=== PATIENT | female | born 2000 | race American Indian/Alaskan Native ===

== ENCOUNTER 2022-03-02 06:11 | Emergency (ER) | payer OTHER ==
[2022-03-02] MEDS ORDERED: MORPHINE 4 MG/1 ML INJ IV ONE (07:20)
[2022-03-02] MEDS ORDERED: FAMOTIDINE 20 MG/2 ML INJ IV ONE (07:20)
[2022-03-02] MEDS ORDERED: SODIUM CHLORIDE 0.9% 1000 ML 1,000 ML IV ONE ×2 (07:20→11:00)
[2022-03-02] MEDS ORDERED: ONDANSETRON 4 MG/2 ML INJ IV ONE (07:20)
[2022-03-02 07:32] LABS: Alanine Aminotransferase 25 units/L (7-56); Albumin 4.5 g/dL (3.9-5); Blood Urea Nitrogen 9 mg/dL (7-17); Calcium 9.4 mg/dL (8.4-10.2); Hemolysis Index 1
[2022-03-02 07:33] LABS: Basophils % (Auto) 0.5 % (0.0-1.8); Eosinophils # (Auto) 0.2 K/mm3 (0.0-0.4); Eosinophils % (Auto) 3.2 % (0.0-4.3); Hemoglobin 11.4 gm/dl (10.1-14.3); Lymphocytes # (Auto) 2.7 K/mm3 (1.2-5.4); Lymphocytes % (Auto) 43.3 % (13.4-35.0); Mean Corpuscular HGB Conc 34 % (30-34); Mean Corpuscular Volume 84 fl (79-97); Monocytes # (Auto) 0.4 K/mm3 (0.0-0.8); Monocytes % (Auto) 6.6 % (0.0-7.3); Platelet Count 348 K/mm3 (140-440); Red Blood Count 4.06 M/mm3 (3.65-5.03); Red Cell Distribution Width 14.6 % (13.2-15.2)
[2022-03-02 07:34] LABS: BUN/Creatinine Ratio 18
[2022-03-02 08:10] LABS: Mucus,Urine FEW /HPF; WBC,Urine < 1.0 /HPF (0.0-6.0)
[2022-03-02 08:14] LABS: Color,Urine Yellow (Yellow)
--- NOTE | 2022-03-02 09:25 | Emergency Department Report ---
ED Abdominal Pain HPI - General Chief Complaint: Abdominal Pain Stated Complaint: ABD PAIN Time Seen by Provider: 03/02/22 07:11 Source: patient, EMS Mode of arrival: Stretcher Limitations: No Limitations - History of Present Illness Initial Comments: This is a 22-year-old female nontoxic, well nourished in appearance, no acute signs of distress presents to the ED with c/o of nausea and vomiting and abdominal pain several days. Patient describes vomiting as food content and yellow gastric acid. Patient describes abdominal pain as cramping and aching with level of 8/10 upper abdomen area. Patient denies chest pain, short of breath, fever, hemoptysis, blood in stool, chills, headache, stiff neck, numbness or tingling. Patient denies any diarrhea or constipation. Denies any blood in stool. Patient denies any recent travels. Patient denies any allergies. Patient did has history of gallstones and was instructed that she needs to have surgery but did not due to recent . MD Complaint: abdominal pain -: days(s) Location: LUQ, RUQ Radiation: none Migration to: no migration Severity: mild Severity scale (0 -10): 8 Quality: aching Consistency: constant Improves With: nothing Worsens With: nothing Associated Symptoms: nausea, vomiting. denies: diarrhea, fever, chills, constipation, dysuria, hematemesis, hematochezia, melena, hematuria, anorexia, syncope - Related Data Previous Rx's Medication Instructions Recorded Last Taken Type Acetaminophen/Codeine [Tylenol 1 tab PO Q6H PRN #12 tab 03/02/22 Unknown Rx /Codeine # 3 tab] Ciprofloxacin HCl 500 mg PO Q12H #14 tab 03/02/22 Unknown Rx Ondansetron [Zofran Odt] 4 mg PO Q8HR PRN #12 tab.rapdis 03/02/22 Unknown Rx Allergies Allergy/AdvReac Type Severity Reaction Status Date / Time No Known Allergies Allergy Unverified 03/02/22 06:31 ED Review of Systems ROS: Stated complaint: ABD PAIN Other details as noted in HPI Comment: All other systems reviewed and negative Constitutional: denies: chills, fever Eyes: denies: eye pain, eye discharge, vision change ENT: denies: ear pain, throat pain Respiratory: denies: cough, shortness of breath, wheezing Cardiovascular: denies: chest pain, palpitations Endocrine: no symptoms reported Gastrointestinal: abdominal pain, nausea, vomiting. denies: diarrhea, constipation, hematemesis, melena, hematochezia Genitourinary: denies: urgency, dysuria, discharge Musculoskeletal: denies: back pain, joint swelling, arthralgia Skin: denies: rash, lesions Neurological: denies: headache, weakness, paresthesias Psychiatric: denies: anxiety, depression Hematological/Lymphatic: denies: easy bleeding, easy bruising ED Past Medical Hx - Past Medical History Previous Medical History?: Yes Additional medical history: Gallstones - Surgical History Past Surgical History?: No - Social History Smoking Status: Never Smoker Substance Use Type: None - Medications Home Medications: Home Medications Medication Instructions Recorded Confirmed Last Taken Type Acetaminophen/Codeine [Tylenol 1 tab PO Q6H PRN #12 tab 03/02/22 Unknown Rx /Codeine # 3 tab] Ciprofloxacin HCl 500 mg PO Q12H #14 tab 03/02/22 Unknown Rx Ondansetron [Zofran Odt] 4 mg PO Q8HR PRN #12 tab.rapdis 03/02/22 Unknown Rx ED Physical Exam - General Limitations: No Limitations General appearance: alert, in no apparent distress - Head Head exam: Present: atraumatic, normocephalic - Eye Eye exam: Present: normal appearance - Neck Neck exam: Present: normal inspection, full ROM. Absent: lymphadenopathy - Respiratory Respiratory exam: Absent: respiratory distress - Cardiovascular Cardiovascular Exam: Present: regular rate - GI/Abdominal GI/Abdominal exam: Present: soft, tenderness (upper abdomen area bilateral), normal bowel sounds. Absent: distended, guarding, rebound, rigid, diminished bowel sounds - Extremities Exam Extremities exam: Present: full ROM - Back Exam Back exam: Present: normal inspection, full ROM. Absent: tenderness, CVA tenderness (R), CVA tenderness (L), muscle spasm, paraspinal tenderness, vertebral tenderness, rash noted - Neurological Exam Neurological exam: Present: alert, oriented X3, normal gait - Psychiatric Psychiatric exam: Present: normal affect, normal mood - Skin Skin exam: Present: warm, dry, intact, normal color. Absent: rash ED Course Vital Signs 03/02/22 03/02/22 03/02/22 06:25 11:08 11:18 Temperature 98.1 F 98.5 F Pulse Rate 93 H 82 Respiratory 14 18 Rate Blood Pressure 130/80 Blood Pressure 104/58 [Left] O2 Sat by Pulse 100 Oximetry - Reevaluation(s) Reevaluation #1: 03/02/22 09:25 Patient is speaking in full sentences with no signs of distress noted. ED Medical Decision Making - Lab Data Result diagrams: 03/02/22 06:46 03/02/22 06:46 Lab Results 03/02/22 03/02/22 03/02/22 Range/Units 06:43 06:46 06:46 WBC 6.3 (4.5-11.0) K/mm3 RBC 4.06 (3.65-5.03) M/mm3 Hgb 11.4 (10.1-14.3) gm/dl Hct 34.0 (30.3-42.9) % MCV 84 (79-97) fl MCH 28 (28-32) pg MCHC 34 (30-34) % RDW 14.6 (13.2-15.2) % Plt Count 348 (140-440) K/mm3 Lymph % (Auto) 43.3 H (13.4-35.0) % Gaston % (Auto) 6.6 (0.0-7.3) % Eos % (Auto) 3.2 (0.0-4.3) % Baso % (Auto) 0.5 (0.0-1.8) % Lymph # (Auto) 2.7 (1.2-5.4) K/mm3 Gaston # (Auto) 0.4 (0.0-0.8) K/mm3 Eos # (Auto) 0.2 (0.0-0.4) K/mm3 Baso # (Auto) 0.0 (0.0-0.1) K/mm3 Seg Neutrophils % 46.4 (40.0-70.0) % Seg Neutrophils # 2.9 (1.8-7.7) K/mm3 Sodium 139 (137-145) mmol/L Potassium 4.2 (3.6-5.0) mmol/L Chloride 103.0 (98-107) mmol/L Carbon Dioxide 25 (22-30) mmol/L Anion Gap 15 mmol/L BUN 9 (7-17) mg/dL Creatinine 0.5 L (0.6-1.2) mg/dL Estimated GFR > 60 ml/min BUN/Creatinine Ratio 18 % Glucose 106 H (65-100) mg/dL Calcium 9.4 (8.4-10.2) mg/dL Total Bilirubin < 0.20 (0.1-1.2) mg/dL AST 15 (5-40) units/L ALT 25 (7-56) units/L Alkaline Phosphatase 109 (35-129) units/L Total Protein 7.7 (6.3-8.2) g/dL Albumin 4.5 (3.9-5) g/dL Albumin/Globulin Ratio 1.4 % Lipase 34 (13-60) units/L HCG, Qual (Negative) Urine Color Yellow (Yellow) Urine Turbidity Clear (Clear) Specific Colony (Man) 1.030 (1.003-1.030) Ur Protein (Man) Negative (Negative) mg/dL Ur Ketones (Man) Negative (Negative) Ur Nitrite (Man) Negative (Negative) Ur Reducing Substances Not Reportable Urine Bilirubin (Man) Negative (Negative) Urine Ictotest Not Reportable Leukocyte Esterase (Man) Negative (Negative) Urine WBC (Auto) < 1.0 (0.0-6.0) /HPF Urine RBC (Auto) 2.0 (0.0-6.0) /HPF U Epithel Cells (Auto) 1.0 (0-13.0) /HPF Urine RBC (Manual) 1+ (Negative) Urine Mucus Few /HPF 03/02/22 Range/Units 06:46 WBC (4.5-11.0) K/mm3 RBC (3.65-5.03) M/mm3 Hgb (10.1-14.3) gm/dl Hct (30.3-42.9) % MCV (79-97) fl MCH (28-32) pg MCHC (30-34) % RDW (13.2-15.2) % Plt Count (140-440) K/mm3 Lymph % (Auto) (13.4-35.0) % Gaston % (Auto) (0.0-7.3) % Eos % (Auto) (0.0-4.3) % Baso % (Auto) (0.0-1.8) % Lymph # (Auto) (1.2-5.4) K/mm3 Gaston # (Auto) (0.0-0.8) K/mm3 Eos # (Auto) (0.0-0.4) K/mm3 Baso # (Auto) (0.0-0.1) K/mm3 Seg Neutrophils % (40.0-70.0) % Seg Neutrophils # (1.8-7.7) K/mm3 Sodium (137-145) mmol/L Potassium (3.6-5.0) mmol/L Chloride (98-107) mmol/L Carbon Dioxide (22-30) mmol/L Anion Gap mmol/L BUN (7-17) mg/dL Creatinine (0.6-1.2) mg/dL Estimated GFR ml/min BUN/Creatinine Ratio % Glucose (65-100) mg/dL Calcium (8.4-10.2) mg/dL Total Bilirubin (0.1-1.2) mg/dL AST (5-40) units/L ALT (7-56) units/L Alkaline Phosphatase (35-129) units/L Total Protein (6.3-8.2) g/dL Albumin (3.9-5) g/dL Albumin/Globulin Ratio % Lipase (13-60) units/L HCG, Qual Negative (Negative) Urine Color (Yellow) Urine Turbidity (Clear) Specific Colony (Man) (1.003-1.030) Ur Protein (Man) (Negative) mg/dL Ur Ketones (Man) (Negative) Ur Nitrite (Man) (Negative) Ur Reducing Substances Urine Bilirubin (Man) (Negative) Urine Ictotest Leukocyte Esterase (Man) (Negative) Urine WBC (Auto) (0.0-6.0) /HPF Urine RBC (Auto) (0.0-6.0) /HPF U Epithel Cells (Auto) (0-13.0) /HPF Urine RBC (Manual) (Negative) Urine Mucus /HPF - Radiology Data [facility] [address] [place] [address] Ultrasound Report Signed Patient: DUNCAN VILLAREAL MR#: [id number] : 2000 Acct:[id number] Age/Sex: 22 / F ADM Date: 03/02/22 Loc: ED Attending Dr: Ordering Physician: TANIA URBINA NP Date of Service: 03/02/22 Procedure(s): US abdomen limited Accession Number(s): [id number] cc: TANIA URBINA NP ULTRASOUND ABDOMEN, LIMITED INDICATION / CLINICAL INFORMATION: RUQ pain w/ abnormal CT of gallbladder. COMPARISON: None available. FINDINGS: PANCREAS: Visualized portion shows no significant abnormality. LIVER: Mildly enlarged 17.7 cm. Normal hepatopedal blood flow in the main portal vein. GALLBLADDER: Multiple shadowing gallstones are appreciated. The gallbladder wall is at the upper limits of normal measuring 3.8 mm. No definitive pericholecystic fluid. Sonographic Tai's sign is not documented. BILE DUCTS: No significant abnormality. Common bile duct measures 2.7 mm. FREE FLUID: None. ADDITIONAL FINDINGS: None. IMPRESSION: 1. Findings equivocal for early cholecystitis as there are stones and borderline wall thickening but no pericholecystic fluid. Please note no sonographic Tai sign was performed. Consider short interval follow-up based on clinical course. Signer Name: Pinky Lara MD Signed: 03/02/2022 12:57 PM Workstation Name: [email or web address] Transcribed By: RV Dictated By: PINKY LARA MD Electronically Authenticated By: PINKY LARA MD Signed Date/Time: 03/02/22 1257 DD/ 1252 TD/TT: [facility] [address] [place] [address] Cat Scan Report Signed Patient: DUNCAN VILLAREAL MR#: [id number] : 2000 Acct:[id number] Age/Sex: 22 / F ADM Date: 03/02/22 Loc: ED Attending Dr: Ordering Physician: TANIA URBINA NP Date of Service: 03/02/22 Procedure(s): CT abdomen pelvis w con Accession Number(s): [id number] cc: TANIA URBINA NP CT ABDOMEN AND PELVIS WITH CONTRAST INDICATION / CLINICAL INFORMATION: abd pain with n/v OMNIPAQUE 350 100ML preg test neg. TECHNIQUE: Axial CT images were obtained through the abdomen and pelvis after [address] scans at this location are performed using CT dose reduction for ALARA by means of automated exposure control. COMPARISON: None available. FINDINGS: LOWER CHEST: No significant abnormality. LIVER: No significant abnormality. GALLBLADDER: Multiple gallstones. Questionable wall thickening. BILE DUCTS: No significant abnormality. PANCREAS: No significant abnormality. SPLEEN: No significant abnormality. ADRENALS: No significant abnormality. RIGHT KIDNEY / URETER: No significant abnormality. LEFT KIDNEY / URETER: No significant abnormality. STOMACH / SMALL BOWEL: No significant abnormality. COLON: No significant abnormality. APPENDIX: No significant abnormality. PERITONEUM: Trace, low dense, likely physiologic. No free air. No fluid collection. LYMPH NODES: No significant adenopathy. AORTA / ARTERIES: No significant abnormality. IVC / VEINS: No significant abnormality. URINARY BLADDER: No significant abnormality. REPRODUCTIVE ORGANS: Uterus heterogeneity/hypervascularity with parametrial vascular congestion. Bilateral ovarian cysts, largest on the right measuring 2.4 cm, likely physiologic. ADDITIONAL FINDINGS: None. SKELETAL SYSTEM: No significant abnormality. IMPRESSION: 1. Gallstones with suggestion of early gallbladder wall thickening which may indicate early cholecystitis. Correlate biochemically/clinically and recommend ultrasound to better characterize. 2. Premature vascular congestion presumably related the patient's menstrual cycle; correlate clinically. Uterine heterogeneity may indicate a component of fibroids. Routine pelvic sonographic follow-up is suggested. Signer Name: Vandana Hartman MD Signed: 03/02/2022 11:17 AM Workstation Name: [id number] Transcribed By: WP Dictated By: Chad HARTMAN Electronically Authenticated By: Chad HARTMAN Signed Date/Time: 03/02/221116 DD/ 12 TD/TT: - Medical Decision Making 22 old female that presents with cholecystitis and gallstones. Patient stable and was examined by me. Labs obtained. UA obtained. CT of abdomen and ultrasound of abdomen obtained and dictated by the radiologist. Patient is notified of the report with no questions noted by the patient. Vital signs are stable prior to discharge. Patient received medical treatment in the ED which patient stated symptoms has resovled and subsided. Was instructed note to operate any machinery due to possible drowsiness and stated someone will drive the patient home. A by mouth challenge has been obtained and patient tolerated well with no nausea vomiting. Patient was also instructed to Follow-up with a primary care and general surgeon doctor in 3-5 days or if symptoms worsen and continue return to emergency room as soon as possible. At time of discharge, the patient does not seem toxic or ill in appearance. No acute signs of distress noted. Patient agrees to discharge treatment plan of care. No further questions noted by the patient. Critical care attestation.: If time is entered above; I have spent that time in minutes in the direct care of this critically ill patient, excluding procedure time. ED Disposition Clinical Impression: Cholecystitis, Gallstones Disposition: 01 HOME / SELF CARE / HOMELESS Is pt being admited?: No Does the pt Need Aspirin: No Condition: Stable Instructions: Abdominal Pain (ED), Cholelithiasis, Cholecystitis Additional Instructions: Follow-up with a primary care and general surgeon doctor in 3-5 days or if symptoms worsen and continue return to emergency room as soon as possible. Prescriptions: Ciprofloxacin HCl 500 mg PO Q12H #14 tab Acetaminophen/Codeine [Tylenol /Codeine # 3 tab] 1 tab PO Q6H PRN #12 tab PRN Reason: Pain , Severe (7-10) Ondansetron [Zofran Odt] 4 mg PO Q8HR PRN #12 tab.rapdis PRN Reason: Cough Referrals: PRIMARY MD JESICA [Primary Care Provider] - 3-5 Days ADOLFO VILLASENOR MD [Staff Physician] - 3-5 Days Time of Disposition: 13:41
[2022-03-02] MEDS ORDERED: diphenhydrAMINE 50 MG/ML VIAL IV ONE (10:58)
[2022-03-02] MEDS ORDERED: ONDANSETRON 4 MG/2 ML INJ IV NR (11:00)
[2022-03-02] MEDS ORDERED: MORPHINE 4 MG/1 ML INJ IV NR (11:00)
[2022-03-02] MEDS ORDERED: FAMOTIDINE 20 MG/2 ML INJ IV NR (11:00)
--- NOTE | 2022-03-02 11:21 | Cat Scan Report ---
CT ABDOMEN AND PELVIS WITH CONTRAST INDICATION / CLINICAL INFORMATION: abd pain with n/v OMNIPAQUE 350 100ML preg test neg. TECHNIQUE: Axial CT images were obtained through the abdomen and pelvis after 100 IV contrast. All C T scans at this location are performed using CT dose reduction for ALARA by means of automated exposu re control. COMPARISON: None available. FINDINGS: LOWER CHEST: No significant abnormality. LIVER: No significant abnormality. GALLBLADDER: Multiple gallstones. Questionable wall thickening. BILE DUCTS: No significant abnormality. PANCREAS: No significant abnormality. SPLEEN: No significant abnormality. ADRENALS: No significant abnormality. RIGHT KIDNEY / URETER: No significant abnormality. LEFT KIDNEY / URETER: No significant abnormality. STOMACH / SMALL BOWEL: No significant abnormality. COLON: No significant abnormality. APPENDIX: No significant abnormality. PERITONEUM: Trace, low dense, likely physiologic. No free air. No fluid collection. LYMPH NODES: No significant adenopathy. AORTA / ARTERIES: No significant abnormality. IVC / VEINS: No significant abnormality. URINARY BLADDER: No significant abnormality. REPRODUCTIVE ORGANS: Uterus heterogeneity/hypervascularity with parametrial vascular congestion. Bila teral ovarian cysts, largest on the right measuring 2.4 cm, likely physiologic. ADDITIONAL FINDINGS: None. SKELETAL SYSTEM: No significant abnormality. IMPRESSION: 1. Gallstones with suggestion of early gallbladder wall thickening which may indicate early cholecyst itis. Correlate biochemically/clinically and recommend ultrasound to better characterize. 2. Premature vascular congestion presumably related the patient's menstrual cycle; correlate clinical ly. Uterine heterogeneity may indicate a component of fibroids. Routine pelvic sonographic follow-up is suggested. Signer Name: Vandana Hartman MD Signed: 03/02/2022 11:17 AM Workstation Name: [employer]
--- NOTE | 2022-03-02 13:01 | Ultrasound Report ---
ULTRASOUND ABDOMEN, LIMITED INDICATION / CLINICAL INFORMATION: RUQ pain w/ abnormal CT of gallbladder. COMPARISON: None available. FINDINGS: PANCREAS: Visualized portion shows no significant abnormality. LIVER: Mildly enlarged 17.7 cm. Normal hepatopedal blood flow in the main portal vein. GALLBLADDER: Multiple shadowing gallstones are appreciated. The gallbladder wall is at the upper limi ts of normal measuring 3.8 mm. No definitive pericholecystic fluid. Sonographic Tai's sign is not documented. BILE DUCTS: No significant abnormality. Common bile duct measures 2.7 mm. FREE FLUID: None. ADDITIONAL FINDINGS: None. IMPRESSION: 1. Findings equivocal for early cholecystitis as there are stones and borderline wall thickening but no pericholecystic fluid. Please note no sonographic Tai sign was performed. Consider short interv al follow-up based on clinical course. Signer Name: Alberto Peralta MD Signed: 03/02/2022 12:57 PM Workstation Name: [email or web address]
[2022-03-02 14:00] VITALS: BP 132/76
== END 2022-03-02 14:06 | disposition home or self-care (01) ==
LOC: ED 06:11
DX: K80.10 Calculus of gallbladder with chronic cholecystitis without obstruction (principal); Z98.890 Other specified postprocedural states; Z79.899 Other long term (current) drug therapy
CPT/HCPCS: 36415; 74177; 76705; 80053; 81001; 83690; 84703; 85025; 96361; 96374; 96375; 99284; J1200; J2270; J2405; J3490; J7030; Q9967